=== PATIENT | male | born 1950 | race Caucasian/White ===

== ENCOUNTER 2021-05-09 19:11 | Inpatient (IN) | payer MEDICARE ==
--- NOTE | 2021-05-09 20:27 | XR ---
EXAMINATION TYPE: XR chest 2V DATE OF EXAM: 05/09/2021 COMPARISON: 08/09/2017 HISTORY: Short of breath TECHNIQUE: 2 views FINDINGS: There is some pulmonary mild vascular congestion. Heart is enlarged. There are sternal wire s. There is left axillary pacemaker. There is no pleural effusion. IMPRESSION: There is probably some mild congestive heart failure. Pulmonary congestion increased comp ared to old exam.
--- NOTE | 2021-05-09 20:45 | ED ---
General Adult HPI - General Chief complaint: Shortness of Breath Stated complaint: SOB, chest pain Time Seen by Provider: 05/09/21 20:20 Source: patient, family, RN notes reviewed Mode of arrival: ambulatory Limitations: no limitations - History of Present Illness Initial comments: Patient is a pleasant 70-year-old male presenting to the emergency department with exertional dyspnea. Symptoms have progressed over the past week. Patient is only able to take around 6 steps speak for becoming short of breath at this time. No history of similar symptoms previously. No leg pain or leg swelling. Patient does not like it down as he sleeps in a recliner. Patient denies chest discomfort however family states he has been complaining somewhat of some mild chest discomfort. No nausea vomiting. No diaphoresis. - Related Data Home Medications Medication Instructions Recorded Confirmed Aspirin EC [Ecotrin Low Dose] 81 mg PO DAILY 05/09/21 05/09/21 Atorvastatin Calcium [Lipitor] 40 mg PO DAILY 05/09/21 05/09/21 Spironolactone [Aldactone] 25 mg PO DAILY 05/09/21 05/09/21 Previous Rx's Medication Instructions Recorded Losartan [Cozaar] 12.5 mg PO DAILY #60 tab 08/10/17 carvediloL [Coreg] 6.25 mg PO BID-W/MEALS #60 tab 08/10/17 Allergies Allergy/AdvReac Type Severity Reaction Status Date / Time No Known Allergies Allergy Verified 05/09/21 21:23 Review of Systems ROS Statement: Those systems with pertinent positive or pertinent negative responses have been documented in the HPI. ROS Other: All systems not noted in ROS Statement are negative. Constitutional: Denies: fever Eyes: Denies: eye pain ENT: Denies: ear pain Respiratory: Reports: as per HPI, dyspnea Cardiovascular: Reports: as per HPI. Denies: edema Endocrine: Denies: fatigue Gastrointestinal: Denies: abdominal pain Genitourinary: Denies: dysuria Musculoskeletal: Denies: back pain Skin: Denies: rash Neurological: Denies: weakness Past Medical History Past Medical History: Coronary Artery Disease (CAD), Hyperlipidemia, Hypertension, Myocardial Infarction ([place]) Additional Past Medical History / Comment(s): Coronary artery disease, previous bypass surgery, ischemic cardiomyopathy with an ejection fraction of 20%, hypertension, hyperlipidemia, third-degree AV block status post dual-chamber AICD placement. The patient has also very poor compliance with medical treatment and the patient has not seen a doctor after his coronary artery bypass surgery. Other medical history includes hypertension and hyperlipidemia. Last Myocardial Infarction Date:: 1997 History of Any Multi-Drug Resistant Organisms: None Reported Past Surgical History: Appendectomy, Coronary Bypass/CABG, Tonsillectomy Additional Past Surgical History / Comment(s): CABG 20 years ago Past Psychological History: No Psychological Hx Reported Smoking Status: Never smoker Past Alcohol Use History: None Reported Past Drug Use History: None Reported - Past Family History Father Family Medical History: Coronary Artery Disease (CAD) Additional Family Medical History / Comment(s): PAD Mother Additional Family Medical History / Comment(s): from uterine cancer, H [place] General Exam Limitations: no limitations General appearance: alert, in no apparent distress Head exam: Present: normocephalic Eye exam: Present: normal appearance Neck exam: Present: normal inspection Respiratory exam: Present: normal lung sounds bilaterally Cardiovascular Exam: Present: regular rate, normal rhythm, systolic murmur Expanded Peripheral pulses: 2+: Radial (R), Radial (L), Posterior Tibialis (R), Posterior Tibialis (L) GI/Abdominal exam: Present: soft. Absent: tenderness Extremities exam: Present: normal inspection. Absent: pedal edema, calf tenderness Neurological exam: Present: alert Psychiatric exam: Present: normal affect, normal mood Skin exam: Present: normal color Course Vital Signs 05/09/21 19:38 Temperature 98.1 F Pulse Rate 105 H Respiratory 21 Rate Blood Pressure 143/90 O2 Sat by Pulse 97 Oximetry EKG Findings - EKG Comments: EKG Findings:: Paced rhythm with a rate of 103. WV 150. QRS 170. QT 466. QTc 410. Left axis. Wide QRS complex. Nonspecific ST-T. Medical Decision Making - Medical Decision Making Patient reevaluated and updated. Case discussed with Dr. Laird, who will admit for hospital call. - Lab Data Result diagrams: 05/09/21 20:47 05/09/21 20:47 Lab Results 05/09/21 05/09/21 05/09/21 Range/Units 20:47 20:47 20:47 WBC 8.9 (3.8-10.6) k/uL RBC 5.76 (4.30-5.90) m/uL Hgb 15.2 (13.0-17.5) gm/dL Hct 46.1 (39.0-53.0) % MCV 79.9 L (80.0-100.0) fL MCH 26.4 (25.0-35.0) pg MCHC 33.1 (31.0-37.0) g/dL RDW 16.0 H (11.5-15.5) % Plt Count 270 (150-450) k/uL MPV 8.6 Neutrophils % 78 % Lymphocytes % 12 % Monocytes % 7 % Eosinophils % 1 % Basophils % 1 % Neutrophils # 6.9 (1.3-7.7) k/uL Lymphocytes # 1.1 (1.0-4.8) k/uL Monocytes # 0.6 (0-1.0) k/uL Eosinophils # 0.1 (0-0.7) k/uL Basophils # 0.1 (0-0.2) k/uL Anisocytosis Slight PT 11.0 (9.0-12.0) sec INR 1.0 (<1.2) APTT 26.1 (22.0-30.0) sec Sodium 138 (137-145) mmol/L Potassium 4.2 (3.5-5.1) mmol/L Chloride 104 (98-107) mmol/L Carbon Dioxide 23 (22-30) mmol/L Anion Gap 11 mmol/L BUN 14 (9-20) mg/dL Creatinine 1.55 H (0.66-1.25) mg/dL Est GFR (CKD-EPI)AfAm 51 (>60 ml/min/1.73 sqM) Est GFR (CKD-EPI)NonAf 44 (>60 ml/min/1.73 sqM) Glucose 122 H (74-99) mg/dL Plasma Lactic Acid Kilo (0.7-2.0) mmol/L Calcium 9.2 (8.4-10.2) mg/dL Magnesium 2.2 (1.6-2.3) mg/dL Total Bilirubin 0.6 (0.2-1.3) mg/dL AST 27 (17-59) U/L ALT 16 (4-49) U/L Alkaline Phosphatase 103 (38-126) U/L Troponin I (0.000-0.034) ng/mL NT-Pro-B Natriuret Pep pg/mL Total Protein 7.0 (6.3-8.2) g/dL Albumin 4.1 (3.5-5.0) g/dL Coronavirus (PCR) (Not Detectd) 05/09/21 05/09/21 05/09/21 Range/Units 20:47 20:47 20:47 WBC (3.8-10.6) k/uL RBC (4.30-5.90) m/uL Hgb (13.0-17.5) gm/dL Hct (39.0-53.0) % MCV (80.0-100.0) fL MCH (25.0-35.0) pg MCHC (31.0-37.0) g/dL RDW (11.5-15.5) % Plt Count (150-450) k/uL MPV Neutrophils % % Lymphocytes % % Monocytes % % Eosinophils % % Basophils % % Neutrophils # (1.3-7.7) k/uL Lymphocytes # (1.0-4.8) k/uL Monocytes # (0-1.0) k/uL Eosinophils # (0-0.7) k/uL Basophils # (0-0.2) k/uL Anisocytosis PT (9.0-12.0) sec INR (<1.2) APTT (22.0-30.0) sec Sodium (137-145) mmol/L Potassium (3.5-5.1) mmol/L Chloride (98-107) mmol/L Carbon Dioxide (22-30) mmol/L Anion Gap mmol/L BUN (9-20) mg/dL Creatinine (0.66-1.25) mg/dL Est GFR (CKD-EPI)AfAm (>60 ml/min/1.73 sqM) Est GFR (CKD-EPI)NonAf (>60 ml/min/1.73 sqM) Glucose (74-99) mg/dL Plasma Lactic Acid Kilo 1.6 (0.7-2.0) mmol/L Calcium (8.4-10.2) mg/dL Magnesium (1.6-2.3) mg/dL Total Bilirubin (0.2-1.3) mg/dL AST (17-59) U/L ALT (4-49) U/L Alkaline Phosphatase (38-126) U/L Troponin I <0.012 (0.000-0.034) ng/mL NT-Pro-B Natriuret Pep 5840 pg/mL Total Protein (6.3-8.2) g/dL Albumin (3.5-5.0) g/dL Coronavirus (PCR) (Not Detectd) 05/09/21 Range/Units 20:47 WBC (3.8-10.6) k/uL RBC (4.30-5.90) m/uL Hgb (13.0-17.5) gm/dL Hct (39.0-53.0) % MCV (80.0-100.0) fL MCH (25.0-35.0) pg MCHC (31.0-37.0) g/dL RDW (11.5-15.5) % Plt Count (150-450) k/uL MPV Neutrophils % % Lymphocytes % % Monocytes % % Eosinophils % % Basophils % % Neutrophils # (1.3-7.7) k/uL Lymphocytes # (1.0-4.8) k/uL Monocytes # (0-1.0) k/uL Eosinophils # (0-0.7) k/uL Basophils # (0-0.2) k/uL Anisocytosis PT (9.0-12.0) sec INR (<1.2) APTT (22.0-30.0) sec Sodium (137-145) mmol/L Potassium (3.5-5.1) mmol/L Chloride (98-107) mmol/L Carbon Dioxide (22-30) mmol/L Anion Gap mmol/L BUN (9-20) mg/dL Creatinine (0.66-1.25) mg/dL Est GFR (CKD-EPI)AfAm (>60 ml/min/1.73 sqM) Est GFR (CKD-EPI)NonAf (>60 ml/min/1.73 sqM) Glucose (74-99) mg/dL Plasma Lactic Acid Kilo (0.7-2.0) mmol/L Calcium (8.4-10.2) mg/dL Magnesium (1.6-2.3) mg/dL Total Bilirubin (0.2-1.3) mg/dL AST (17-59) U/L ALT (4-49) U/L Alkaline Phosphatase (38-126) U/L Troponin I (0.000-0.034) ng/mL NT-Pro-B Natriuret Pep pg/mL Total Protein (6.3-8.2) g/dL Albumin (3.5-5.0) g/dL Coronavirus (PCR) Not Detected (Not Detectd) - Radiology Data Radiology results: image reviewed (Chest x-ray shows congestive heart failure, pulmonary congestion.) Disposition Clinical Impression: Congestive heart failure Disposition: ADMITTED IP TO THIS HOSP Is patient prescribed a controlled substance at d/c from ED?: No Decision Time: 22:11
[2021-05-09 21:14] LABS: Albumin 4.1 g/dL (3.5-5.0); Calcium 9.2 mg/dL (8.4-10.2); Magnesium 2.2 mg/dL (1.6-2.3); Potassium 4.2 mmol/L (3.5-5.1); Total Bilirubin 0.6 mg/dL (0.2-1.3)
[2021-05-09 21:19] LABS: Partial Thromboplastin Time 26.1 sec (22.0-30.0)
[2021-05-09 21:43] LABS: Anisocytosis Slight; Basophils # (A) 0.1 k/uL (0-0.2); Basophils % (A) 1 %; Eosinophils # (A) 0.1 k/uL (0-0.7); Eosinophils % (A) 1 %; HCT 46.1 % (39.0-53.0); HGB 15.2 gm/dL (13.0-17.5); Lymphocytes # (A) 1.1 k/uL (1.0-4.8); Lymphocytes % (A) 12 %; MCH 26.4 pg (25.0-35.0); MCHC 33.1 g/dL (31.0-37.0); MCV 79.9 fL (80.0-100.0); Mean Platelet Volume 8.6; Monocytes # (A) 0.6 k/uL (0-1.0); Monocytes % (A) 7 %; Neutrophils # (A) 6.9 k/uL (1.3-7.7); Neutrophils % (A) 78 %; Platelet Count 270 k/uL (150-450); RBC 5.76 m/uL (4.30-5.90); WBC 8.9 k/uL (3.8-10.6)
[2021-05-09] MEDS ORDERED: ASPIRIN 325 MG TAB PO STA (22:11)
[2021-05-09] MEDS: FUROSEMIDE 10 MG/ML 4 ML VIAL IV SCH (23:27)
--- NOTE | 2021-05-10 03:09 | P.HPIM ---
History of Present Illness H&P Date: 05/10/21 Chief Complaint: progressive exertional dyspnea 70 year old male with ICMP LVEF 20% , complete heart block s/p dual chamber pacer/defibrilator, HTN. HLD. CAD s/p CABG patient comes in due to 1 week history of progressive exertional dyspnea. he denies any leg swelling, chest pain , orthopnea (he does not sleep flat) , cough, fever, chills. he does report occasional PNDs. he denies any smoking, drug abuse, or alcohol . he had no change in his medications,. no recent hospi talization or heart attacks, he noticed progressive SOB, now he cant even walk around the house without getting winded. at times , he is getting short of breath while sitting doing nothing. for which he decided to come in for evaluation .. he denies any abd pain, nausea vomiting, changes in his bowel or urinary habits, no sick contacts or recent travel . 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 All other systems were reviewed and are negative Past Medical History Past Medical History: Coronary Artery Disease (CAD), Hyperlipidemia, Hypertension, Myocardial Infarction ([place]) Additional Past Medical History / Comment(s): Coronary artery disease, previous bypass surgery, ischemic cardiomyopathy with an ejection fraction of 20%, hypertension, hyperlipidemia, third-degree AV block status post dual-chamber AICD placement. The patient has also very poor compliance with medical treatment and the patient has not seen a doctor after his coronary artery bypass surgery. Other medical history includes hypertension and hyperlipidemia. Last Myocardial Infarction Date:: 1997 History of Any Multi-Drug Resistant Organisms: None Reported Past Surgical History: Appendectomy, Coronary Bypass/CABG, Tonsillectomy Additional Past Surgical History / Comment(s): CABG 20 years ago Past Psychological History: No Psychological Hx Reported Smoking Status: Never smoker Past Alcohol Use History: None Reported Past Drug Use History: None Reported - Past Family History Father Family Medical History: Coronary Artery Disease (CAD) Additional Family Medical History / Comment(s): PAD Mother Additional Family Medical History / Comment(s): from uterine cancer, HTN Medications and Allergies Home Medications Medication Instructions Recorded Confirmed Type Losartan [Cozaar] 12.5 mg PO DAILY #60 tab 08/10/17 05/09/21 Rx carvediloL [Coreg] 6.25 mg PO BID-W/MEALS #60 tab 08/10/17 05/09/21 Rx Aspirin EC [Ecotrin Low Dose] 81 mg PO DAILY 05/09/21 05/09/21 History Atorvastatin Calcium [Lipitor] 40 mg PO DAILY 05/09/21 05/09/21 History Spironolactone [Aldactone] 25 mg PO DAILY 05/09/21 05/09/21 History Allergies Allergy/AdvReac Type Severity Reaction Status Date / Time No Known Allergies Allergy Verified 05/09/21 21:23 Physical Exam Vitals: Vital Signs Temp Pulse Resp BP Pulse Ox 05/09/21 23:28 97.5 F L 100 20 136/96 100 05/09/21 20:43 24 05/09/21 19:38 98.1 F 105 H 21 143/90 97 Intake and Output 05/09/21 05/09/21 05/10/21 14:59 22:59 06:59 Other: Weight 90.718 kg Constitutional: No acute distress, conversant, pleasant Eyes: Anicteric sclerae, moist conjunctiva, Pupils equal round reactive to light ENMT: NC/AT Oropharynx clear, no erythema, or exudates Neck: Supple, FROM, no masses, or JVD No carotid bruits No thyromegaly Lungs: inspiratory rales at bilateral lung bases Clear to percussion Normal respiratory effort, no accessory muscle use Cardiovascular: Heart regular in rate and rhythm, systolic murmurs, no gallops, or rubs No peripheral edema Abdominal: Soft Nontender, no guarding, rebound or rigidity Abdomen moving with respiration Normoactive bowel sounds No hepatomegaly, No splenomegaly No palpable mass No abdominal wall hernia noted Skin: Normal temperature, tone, texture, turgor No induration No subcutaneous nodules No rash, lesions No ulcers Extremities: No digital cyanosis No clubbing Pedal pulses intact and symmetrical Radial pulses intact and symmetrical No calf tenderness Psychiatric: Alert and oriented to person, place and time Appropriate affect fair judgement Neuro Muscles Strength 5/5 in all 4 extremities Sensation to light touch grossly present throughout Cranial nerves II-XII grossly intact No focal sensory deficits Lymphatics: no palpable cervical or supraclavicular , or inguinal lymph nodes Results CBC & Chem 7: 05/09/21 20:47 05/09/21 20:47 Labs: Abnormal Lab Results - Last 24 Hours (Table) 05/09/21 05/09/21 Range/Units 20:47 20:47 MCV 79.9 L (80.0-100.0) fL RDW 16.0 H (11.5-15.5) % Creatinine 1.55 H (0.66-1.25) mg/dL Glucose 122 H (74-99) mg/dL Assessment and Plan Assessment: exertional dyspnea with acute on chronic CHF exacerbation ICMP with LVEF 20% s/p dual chamber pacer and defibrillator hypertension controlled hyperlipidemia CAD s/p CABG CKD III stable HLD plan 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
[2021-05-10] MEDS: carvediloL 6.25 MG TAB PO SCH ×2 (06:14→16:56)
[2021-05-10] MEDS: FUROSEMIDE 10 MG/ML 4 ML VIAL IV SCH ×3 (06:14→21:40)
[2021-05-10] MEDS: LOSARTAN 25 MG TAB PO SCH (08:40)
[2021-05-10] MEDS: HEPARIN SODIUM,PORCINE/PF 5,000 UNIT/0.5 ML SYRINGE SQ SCH ×2 (08:41→16:54)
[2021-05-10] MEDS: ASPIRIN 325 MG TAB PO SCH (08:41)
[2021-05-10] MEDS: SPIRONOLACTONE 25 MG TAB PO SCH (08:41)
[2021-05-10] MEDS: ATORVASTATIN 40 MG TAB PO SCH (08:41)
--- NOTE | 2021-05-10 11:09 | ECHOF ---
Referral Reason:exertional dyspnea , ICMP LVEF 20% MEASUREMENTS -------- HEIGHT: 172.7 cm WEIGHT: 90.7 kg BP: 136/94 RVIDd: 3.3 cm (< 3.3) IVSd: 1.4 cm (0.6 - 1.1) LVIDd: 5.6 cm (3.9 - 5.3) LVPWd: 1.3 cm (0.6 - 1.1) IVSs: 1.7 cm LVIDs: 4.2 cm LVPWs: 1.8 cm LA Diam: 4.2 cm (2.7 - 3.8) LAESV Index (A-L): 39.72 ml/m Ao Diam: 3.4 cm (2.0 - 3.7) AV Cusp: 1.9 cm (1.5 - 2.6) MV EXCURSION: 10.759 mm (> 18.000) MV EF SLOPE: 60 mm/s (70 - 150) EPSS: 1.9 cm MV E Manav: 0.99 m/s MV DecT: 139 ms MV A Manav: 0.34 m/s MV E/A Ratio: 2.90 RAP: 5.00 mmHg RVSP: 59.73 mmHg FINDINGS -------- Paced rhythm. This was a technically difficult study with suboptimal views. The left ventricular size is normal. There is moderate concentric left ventricular hypertrophy. O verall left ventricular systolic function is severely impaired with, an EF between 20 - 25 %. The right ventricle is mildly enlarged. LA is moderately dilated 34-39 ml/m2 The right atrium is normal in size. 5 ml of Lumason was utilized for enhancement of images. Interatrial and interventricular septum intact. There is mild aortic valve sclerosis. Trace amount of aortic regurgitation. Mild mitral annular calcification present. Mild tricuspid regurgitation present. There is severe pulmonary hypertension. The right ventricul ar systolic pressure, as measured by Doppler, is 59.73mmHg. Trace/mild (physiologic) pulmonic regurgitation. The aortic root size is normal. Normal inferior vena cava with normal inspiratory collapse consistent with estimated right atrial pre ssure of 5 mmHg. There is no pericardial effusion. CONCLUSIONS -------- 1. The left ventricular size is normal. 2. There is moderate concentric left ventricular hypertrophy. 3. Overall left ventricular systolic function is severely impaired with, an EF between 20 - 25 %. 4. The right ventricle is mildly enlarged. 5. LA is moderately dilated 34-39 ml/m2 6. 5 ml of Lumason was utilized for enhancement of images. 7. There is mild aortic valve sclerosis. 8. Trace amount of aortic regurgitation. 9. Mild mitral annular calcification present. 10. Mild tricuspid regurgitation present. 11. There is severe pulmonary hypertension. 12. The right ventricular systolic pressure, as measured by Doppler, is 59.73mmHg. 13. Trace/mild (physiologic) pulmonic regurgitation. 14. There is no pericardial effusion. ASSISTED LIVING ASSOCIATE: Stephany Marley RDCS
[2021-05-10] MEDS: NITROGLYCERIN OINT 1 INCH/GM PACKET TOPICAL SCH ×4 (11:11→21:41)
--- NOTE | 2021-05-10 13:18 | CONS ---
CONSULTATION CHIEF COMPLAINT: Shortness of breath. Hemal is a 70-year-old gentleman with history of history of bypass surgery, complete heart block, status post permanent pacemaker, hypertension and dyslipidemia who presented to hospital complaining of shortness of breath. He is a poor historian and it is somewhat difficult to obtain information from him. At the time of my evaluation he appears comfortable at rest and is free of symptoms. BNP is elevated at 5840. Hemoglobin is normal at 15.2. One set of troponin is negative. EKG shows paced rhythm. Echo results are pending at this time. Patient's clinical presentation is consistent with acute exacerbation of chronic congestive heart failure and we will treat the patient with IV Lasix, beta blockers, subcutaneous heparin, nitro paste, Aldactone, Cozaar. MEDICATIONS: Medications at home included aspirin, Aldactone, Cozaar, Lipitor and Coreg. ALLERGIES: NO KNOWN DRUG ALLERGIES. PAST MEDICAL AND SURGICAL HISTORY: Significant for coronary artery disease, status post CABG, complete heart block, status post permanent pacemaker, hypertension, dyslipidemia. FAMILY HISTORY: Negative for premature coronary artery disease. SOCIAL HISTORY: Negative for smoking, EtOH abuse or drug abuse. REVIEW OF SYSTEMS: HEENT is unremarkable. CARDIAC: As described above. RESPIRATORY: As described above. GI: Negative. GENITOURINARY: Negative. ALLERGY/IMMUNOLOGY: Negative. SKIN: Negative. MUSCULOSKELETAL: Significant for arthritis. PSYCHOSOCIAL: Negative. ENDOCRINE: Negative. DERMATOLOGY: Negative. CONSTITUTIONAL: Negative. ONCOLOGICAL: Negative. REGISTERED NURSE SURGICAL SERVICES: Negative. Rest of the system review is not relevant. PHYSICAL EXAMINATION: Comfortable at rest. Vital signs are stable. There is no jugular venous distention. Carotid upstroke is normal. There is no bruit. Chest exam reveals good air entry bilaterally. Heart exam reveals first and second heart sounds and ejection systolic murmur in the aortic area. Abdomen is soft. Examination of extremities did not reveal any edema. Peripheral pulses are felt. LABS: Labs have been reviewed. Creatinine is elevated at 1.5. BNP is elevated. ASSESSMENT: 1. Shortness of breath secondary to acute-onset congestive heart failure. 2. Coronary artery disease, status post coronary artery bypass grafting. 3. Complete heart block, status post permanent pacemaker. PLAN: I am going to obtain a 2D echo to document his LV function, treat him with nitro paste, beta blockers, SHAWN inhibitors and intravenous diuretics and adjust therapies as needed. MMODL / IJN: [id number] /
[2021-05-10 14:18] VITALS: BMI 30.4
--- NOTE | 2021-05-10 15:31 | P.PN ---
Subjective Progress Note Date: 05/10/21 Patient is a 70-year-old male with a PMH of dementia, systolic CHF EF 20% with coronary artery disease status post dual-chamber pacemaker/defibrillator and status post CABG, hypertension, and hyperlipidemia who presented to the emergency room with gradually worsening exertional dyspnea. The patient was a dmitted for systolic CHF exacerbation. He was seen with his grandchildren at the bedside. Patient reported ongoing dyspnea with intermittent mild epigastric discomfort, 2 out of 10 at maximal intensity, happening over the past few days. No fever, chills, nausea, vomiting, abdominal pain, diarrhea. General: Non-toxic, in no acute distress, appears stated age, normal weight HEENT: NC/AT, anicteric sclerae, moist conjunctiva, no lid-lag, PERRLA Cardiovascular: S1/S2 wnl, no murmurs, rubs, or gallops Lungs: Clear to auscultation, normal respiratory effort, no accessory muscle use Abdominal: Soft, non-tender, non-distended, no guarding, rebound, or rigidity Skin: Warm, dry Extremities: No edema or contractures Psychiatric: Alert , oriented only to person (baseline as per grandchildren at the bedside) Neuro: CN II-XII grossly intact, Strength 5/5 in all 4 extremities, Speech intact, Sensation to light touch grossly intact throughout Assessment/plan Acute systolic CHF exacerbation -Cardiology consulted -Cardiac monitoring -Monitor I's and O's -IV Lasix -Daily weights -Intake and output -Troponin 0.013 Chronic conditions: Hypertension, hyperlipidemia, chronic kidney disease -Continue with home meds DVT prophylaxis -Heparin subq Discussed with: Patient, grandchildren Anticipated discharge date: in am Anticipated discharge place: Home Objective - Vital Signs Vital signs: Vital Signs Temp 97.7 F 05/10/21 14:17 Pulse 93 05/10/21 14:17 Resp 16 05/10/21 14:17 BP 136/88 05/10/21 14:17 Pulse Ox 96 05/10/21 14:17 Intake & Output 05/09/21 05/10/21 05/10/21 18:59 06:59 18:59 Weight 90.718 kg 90.718 kg Other: Voiding Method Toilet # Voids 1 - Labs CBC & Chem 7: 05/09/21 20:47 05/09/21 20:47 Labs: Abnormal Lab Results - Last 24 Hours (Table) 05/09/21 05/09/21 Range/Units 20:47 20:47 MCV 79.9 L (80.0-100.0) fL RDW 16.0 H (11.5-15.5) % Creatinine 1.55 H (0.66-1.25) mg/dL Glucose 122 H (74-99) mg/dL
[2021-05-11] MEDS: HEPARIN SODIUM,PORCINE/PF 5,000 UNIT/0.5 ML SYRINGE SQ SCH ×3 (01:49→16:47)
[2021-05-11] MEDS: FUROSEMIDE 10 MG/ML 4 ML VIAL IV SCH (06:25)
[2021-05-11] MEDS: SPIRONOLACTONE 25 MG TAB PO SCH (07:56)
[2021-05-11] MEDS: ASPIRIN 325 MG TAB PO SCH (07:56)
[2021-05-11] MEDS: carvediloL 6.25 MG TAB PO SCH (07:57)
[2021-05-11] MEDS: NITROGLYCERIN OINT 1 INCH/GM PACKET TOPICAL SCH (07:57)
[2021-05-11] MEDS: LOSARTAN 25 MG TAB PO SCH (07:57)
[2021-05-11] MEDS: ATORVASTATIN 40 MG TAB PO SCH (07:58)
[2021-05-11] MEDS ORDERED: carvediloL 12.5 MG TAB PO SCH (08:00)
[2021-05-11] MEDS ORDERED: carvediloL 6.25 MG TAB PO ONE (08:15)
[2021-05-11] MEDS: ASPIRIN 81 MG PO SCH (09:25)
[2021-05-11 10:03] LABS: African American GFR (CKD) 46 (>60 ml/min/1.73 sqM); Anion Gap 10 mmol/L; Blood Urea Nitrogen 24 mg/dL (9-20); Calcium 8.8 mg/dL (8.4-10.2); Carbon Dioxide 29 mmol/L (22-30); Chloride 96 mmol/L (98-107); Glucose 134 mg/dL (74-99); Non-African American GFR(CKD) 40 (>60 ml/min/1.73 sqM); Potassium 3.4 mmol/L (3.5-5.1); Sodium 135 mmol/L (137-145)
[2021-05-11] MEDS ORDERED: POTASSIUM CHLORIDE ER 20 MEQ TAB.ER PO STA (10:52)
--- NOTE | 2021-05-11 10:53 | P.PN ---
Subjective Progress Note Date: 05/11/21 HISTORY OF PRESENT ILLNESS: This is a 70-year-old male with a history of coronary artery disease with previous CABG, permanent pacemaker and AICD implantation, hypertension, and hyperlipidemia who presented to the hospital with shortness of breath. The patient was diagnosed with congestive heart failure and was started on IV Lasix. The patient was examined this morning at the bedside. Patient currently denies chest pain or pressure. He denies shortness of breath. He remains on IV Lasix 40 mg every 8 hours. The patient has been having some runs of nonsustained ventricular tachycardia this morning. He denies any symptoms of palpitations or dizziness. Echocardiogram completed reveals ejection fraction 20-25%, trace amount of aortic regurgitation, mild tricuspid regurgitation, and severe pulmonary hypertension. PHYSICAL EXAM: VITAL SIGNS: Reviewed. GENERAL: Well-developed in no acute distress. NECK: Supple. No JVD or thyromegaly LUNGS: Respirations even and unlabored. Lungs diminished to auscultation bilaterally. HEART: Regular rate and rhythm. S1 and S2 heard. Systolic murmur noted. EXTREMITIES: Normal range of motion. No clubbing or cyanosis. Peripheral pulses intact. No lower extremity edema ASSESSMENT: Acute on chronic systolic congestive heart failure Coronary artery disease with previous CABG Ischemic cardiomyopathy with history of AICD implantation History of complete heart block, status post permanent pacemaker Hypertension Hyperlipidemia Nonsustained ventricular tachycardia PLAN: Continue current cardiac medications Decrease IV Lasix to 40 mg IV daily Increase carvedilol to 12.5 mg twice a day Discontinue nitro paste Check electrolytes Further recommendations pending patient's course Nurse practitioner note has been reviewed by physician. Signing provider agrees with the documented findings, assessment, and plan of care. Objective - Vital Signs Vital signs: Vital Signs Temp 97.3 F L 05/11/21 08:01 Pulse 72 05/11/21 08:01 Resp 16 05/11/21 08:01 BP 106/70 05/11/21 08:01 Pulse Ox 97 05/11/21 08:01 Intake & Output 05/10/21 05/11/21 05/11/21 18:59 06:59 18:59 Intake Total 300 Balance 300 Weight 90.718 kg 79.3 kg Intake: Oral 300 Other: Voiding Method Toilet Toilet # Voids 1 2 - Labs CBC & Chem 7: 05/09/21 20:47 05/11/21 09:36 Labs: Abnormal Lab Results - Last 24 Hours (Table) 05/11/21 Range/Units 09:36 Sodium 135 L (137-145) mmol/L Potassium 3.4 L (3.5-5.1) mmol/L Chloride 96 L (98-107) mmol/L BUN 24 H (9-20) mg/dL Creatinine 1.68 H (0.66-1.25) mg/dL Glucose 134 H (74-99) mg/dL
--- NOTE | 2021-05-11 16:18 | P.PN ---
Subjective Progress Note Date: 05/11/21 Patient is a 70-year-old male with a PMH of dementia, systolic CHF EF 20% with coronary artery disease status post dual-chamber pacemaker/defibrillator and status post CABG, hypertension, and hyperlipidemia who presented to the emergency room with gradually worsening exertional dyspnea. The patient was a dmitted for systolic CHF exacerbation. The patient was seen on 05/11 with his granddaughter at the bedside. He reported significant improvement in his shortness breath. Also reported no further chest discomfort. He denied any additional complaints. Denied fever, chills, nausea, vomiting, abdominal pain. General: Non-toxic, in no acute distress, appears stated age, normal weight HEENT: NC/AT, anicteric sclerae, moist conjunctiva, no lid-lag, PERRLA Cardiovascular: S1/S2 wnl, no murmurs, rubs, or gallops Lungs: Clear to auscultation, normal respiratory effort, no accessory muscle use Abdominal: Soft, non-tender, non-distended, no guarding, rebound, or rigidity Skin: Warm, dry Extremities: No edema or contractures Psychiatric: Alert , oriented only to person (baseline as per granddaughter at the bedside) Neuro: CN II-XII grossly intact, Strength 5/5 in all 4 extremities, Speech intact, Sensation to light touch grossly intact throughout Assessment/plan Acute systolic CHF exacerbation -Cardiology recommendations appreciated -Cardiac monitoring -Monitor I's and O's -IV Lasix decreased to daily -Daily weights -Intake and output -Troponin 0.013 Chronic conditions: Hypertension, hyperlipidemia, chronic kidney disease -Continue with home meds DVT prophylaxis -Heparin subq Discussed with: Patient, grandchildren Anticipated discharge date: in am Anticipated discharge place: Home Objective - Vital Signs Vital signs: Vital Signs Temp 97.5 F L 05/11/21 13:46 Pulse 60 05/11/21 14:29 Resp 16 05/11/21 14:29 BP 104/68 05/11/21 13:46 Pulse Ox 95 05/11/21 13:46 Intake & Output 05/10/21 05/11/21 05/11/21 18:59 06:59 18:59 Intake Total 300 Balance 300 Weight 90.718 kg 79.3 kg Intake: Oral 300 Other: Voiding Method Toilet Toilet Toilet # Voids 1 2 - Labs CBC & Chem 7: 05/09/21 20:47 05/11/21 09:36 Labs: Abnormal Lab Results - Last 24 Hours (Table) 05/11/21 Range/Units 09:36 Sodium 135 L (137-145) mmol/L Potassium 3.4 L (3.5-5.1) mmol/L Chloride 96 L (98-107) mmol/L BUN 24 H (9-20) mg/dL Creatinine 1.68 H (0.66-1.25) mg/dL Glucose 134 H (74-99) mg/dL
[2021-05-11] MEDS: carvediloL 12.5 MG TAB PO SCH (16:40)
[2021-05-12] MEDS ORDERED: QUEtiapine 25 MG TAB PO SCH (01:30)
[2021-05-12] MEDS: HEPARIN SODIUM,PORCINE/PF 5,000 UNIT/0.5 ML SYRINGE SQ SCH ×2 (02:28→08:04)
[2021-05-12 02:31] VITALS: TEMP 97.6
[2021-05-12 07:54] VITALS: BP 108/69; PULSE 78; RESP 17
[2021-05-12] MEDS: carvediloL 12.5 MG TAB PO SCH (08:15)
[2021-05-12] MEDS: ATORVASTATIN 40 MG TAB PO SCH (08:15)
[2021-05-12] MEDS: ASPIRIN 81 MG PO SCH (08:15)
[2021-05-12] MEDS: LOSARTAN 25 MG TAB PO SCH (08:16)
[2021-05-12] MEDS: SPIRONOLACTONE 25 MG TAB PO SCH (08:16)
[2021-05-12] MEDS ORDERED: FUROSEMIDE 10 MG/ML 4 ML VIAL IV SCH (09:00)
[2021-05-12] MEDS ORDERED: FUROSEMIDE 40 MG TAB PO SCH (09:00)
--- NOTE | 2021-05-12 11:01 | P.PN ---
Subjective Progress Note Date: 05/12/21 HISTORY OF PRESENT ILLNESS: This is a 70-year-old male with a history of coronary artery disease with previous CABG, permanent pacemaker and AICD implantation, hypertension, and hyperlipidemia who presented to the hospital with shortness of breath. The patient was diagnosed with congestive heart failure and was started on IV Lasix. The patient was examined this morning at the bedside. Patient currently denies chest pain or pressure. He denies shortness of breath. He remains on IV Lasix 40 mg every 8 hours. The patient has been having some runs of nonsustained ventricular tachycardia this morning. He denies any symptoms of palpitations or dizziness. Echocardiogram completed reveals ejection fraction 20-25%, trace amount of aortic regurgitation, mild tricuspid regurgitation, and severe pulmonary hypertension. 05/12/2021 Patient examined us morning. Patient is sitting up in the chair eating breakfast. He denies chest pain or pressure. He denies shortness of breath. Vital signs are stable. Patient is hoping to be discharged home today. PHYSICAL EXAM: VITAL SIGNS: Reviewed. GENERAL: Well-developed in no acute distress. NECK: Supple. No JVD or thyromegaly LUNGS: Respirations even and unlabored. Lungs diminished to auscultation bila terally. HEART: Regular rate and rhythm. S1 and S2 heard. Systolic murmur noted. EXTREMITIES: Normal range of motion. No clubbing or cyanosis. Peripheral pulses intact. No lower extremity edema ASSESSMENT: Acute on chronic systolic congestive heart failure Coronary artery disease with previous CABG Ischemic cardiomyopathy with history of AICD implantation History of complete heart block, status post permanent pacemaker Hypertension Hyperlipidemia Nonsustained ventricular tachycardia PLAN: Continue current cardiac medications Patient is stable for discharge home today from a cardiac standpoint He is to follow-up on an outpatient basis Nurse practitioner note has been reviewed by physician. Signing provider agrees with the documented findings, assessment, and plan of care. Objective - Vital Signs Vital signs: Vital Signs Temp 97.6 F 05/12/21 07:27 Pulse 78 05/12/21 07:27 Resp 17 05/12/21 07:27 BP 108/69 05/12/21 07:27 Pulse Ox 98 05/12/21 07:27 Intake & Output 05/11/21 05/12/21 05/12/21 18:59 06:59 18:59 Intake Total 300 Output Total 600 Balance -600 300 Weight 80.7 kg Intake: Oral 300 Output: Urine 600 Other: Voiding Method Toilet Toilet # Voids 4 2 - Labs CBC & Chem 7: 05/09/21 20:47 05/11/21 09:36
--- NOTE | 2021-05-12 21:23 | P.DS ---
Providers Date of admission: 05/10/21 10:06 Expected date of discharge: 05/12/21 Attending physician: Elie Zhang MD Consults: 05/09/21 22:11 Consult Physician Routine Consulting Provider: Coleman Key Consult Reason/Comments: chf Do you want consulting provider notified?: Yes, Notify in am Primary care physician: Stated None Hospital Course: Discharge Diagnosis: Acute exacerbation of systolic congestive heart failure with ejection fraction 20-25% Hypertension Dyslipidemia Chronic kidney disease stage III Coronary artery disease, ischemic cardiomyopathy History of nonsustained V. tach History of complete heart brought status post permanent pacemaker implantation Hospital Course: Patient is a 70-year-old male with systolic congestive heart failure, coronary artery disease, permanent pacemaker/AICD, hypertension, and dyslipidemia who came in with shortness of breath. He underwent an extensive evaluation was diagnosed acute exacerbation of congestive heart failure and started on Lasix. He underwent an echocardiogram which showed an ejection fraction of 20-25%, improved from his prior of less than 20%. His fluid status was optimized and he was determined stable for discharge home. His breathing had improved and was returned back to baseline. Follow-up: Patient was discharged home on Lasix 40 mg which is new for him, and his Coreg was increased from 6.25-12.5 twice a day. He was discharged home with home health. He will follow up with cardiology and Dr. Dalal. Patient seen and examined at bedside. Denies any chest pain, shortness breath, nausea, or vomiting. Appears somewhat confused however nursing states family says this is normal for him. He reports that he lives with his granddaughter who upset with medications. Vital signs reviewed and stable. General: non toxic, no distress, appears at stated age Derm: warm, dry Head: atraumatic, normocephalic, symmetric Eyes: EOMI, no lid lag, anicteric sclera Mouth: no lip lesion, mucus membranes moist Cardiovascular: S1S2 reg, no murmur, positive posterior tibial pulse bilateral, Lungs: CTA bilateral, no rhonchi, no rales , no accessory muscle use Abdominal: soft, nontender to palpation, no guarding, no appreciable organomegaly Ext: no gross muscle atrophy, no edema, no contractures Neuro: CN II-XI grossly intact, no focal neuro deficits Psych: Alert, oriented to self and year, not situation. A total of 35 minutes of time were spent preparing this complex discharge summary . Plan - Discharge Summary New Discharge Prescriptions: New carvediloL [Coreg*] 12.5 mg PO BID-W/MEALS #60 tab Furosemide [Lasix] 40 mg PO DAILY #30 tab Continue Losartan [Cozaar] 12.5 mg PO DAILY #60 tab Aspirin EC [Ecotrin Low Dose] 81 mg PO DAILY Spironolactone [Aldactone] 25 mg PO DAILY Atorvastatin Calcium [Lipitor] 40 mg PO DAILY Discontinued carvediloL [Coreg] 6.25 mg PO BID-W/MEALS #60 tab Discharge Medication List Losartan [Cozaar] 12.5 mg PO DAILY #60 tab 08/10/17 [Rx] Aspirin EC [Ecotrin Low Dose] 81 mg PO DAILY 05/09/21 [History] Atorvastatin Calcium [Lipitor] 40 mg PO DAILY 05/09/21 [History] Spironolactone [Aldactone] 25 mg PO DAILY 05/09/21 [History] Furosemide [Lasix] 40 mg PO DAILY #30 tab 05/12/21 [Rx] carvediloL [Coreg*] 12.5 mg PO BID-W/MEALS #60 tab 05/12/21 [Rx] Follow up Appointment(s)/Referral(s): Trung Meza MD [STAFF PHYSICIAN] - 1 Week (Office will call with appointment time and date.) Martin Dalal [STAFF PHYSICIAN] - 1 Week Patient Instructions/Handouts: Heart Failure (DC), Low-Sodium Diet (DC) Activity/Diet/Wound Care/Special Instructions: Activity: as tolerated Diet: heart healthy, low sodium Special Instructions: daily weights, make a log Discharge Disposition: HOME WITH HOME HEALTH SERVICES
== END 2021-05-12 12:38 | disposition home health service (06) | DRG 291 ==
LOC: EC 19:11 → 6NMEDSUR 22:11 → OBSVTOIN 05-10 10:06 → 6NMEDSUR 05-10 10:37
PROVIDERS: ADMIT Internal Medicine; ATTEND Internal Medicine
DX: I13.0 Hypertensive heart and chronic kidney disease with heart failure and stage 1 through stage 4 chronic kidney disease, or unspecified chronic kidney disease (principal); I50.23 Acute on chronic systolic (congestive) heart failure; I47.2 Ventricular tachycardia; Z20.822 Contact with and (suspected) exposure to COVID-19; R01.1 Cardiac murmur, unspecified; R06.00 Dyspnea, unspecified; I25.10 Atherosclerotic heart disease of native coronary artery without angina pectoris; I25.5 Ischemic cardiomyopathy; E78.5 Hyperlipidemia, unspecified; N18.30 Chronic kidney disease, stage 3 unspecified; F03.90 Unspecified dementia, unspecified severity, without behavioral disturbance, psychotic disturbance, mood disturbance, and anxiety; I25.2 Old myocardial infarction; Z79.82 Long term (current) use of aspirin; Z79.899 Other long term (current) drug therapy; Z91.19 Patient's noncompliance with other medical treatment and regimen; Z95.1 Presence of aortocoronary bypass graft; Z95.810 Presence of automatic (implantable) cardiac defibrillator; Z86.79 Personal history of other diseases of the circulatory system
CPT/HCPCS: 36415; 71046; 80048; 80053; 83605; 83735; 83880; 84484; 85025; 85610; 85730; 87635; 93005; 93306; 99285

== ENCOUNTER 2021-08-08 09:07 | Emergency (ER) | payer MEDICARE ==
[2021-08-08 09:13] VITALS: RESP 18
[2021-08-08] MEDS ORDERED: SODIUM CHLORIDE 0.9% 500 ML 500 ML IV ONE (09:34)
[2021-08-08] MEDS ORDERED: SODIUM CHLORIDE 0.9% 1,000 ML IV ONE (09:34)
--- NOTE | 2021-08-08 09:39 | ED ---
General Adult HPI - General Chief complaint: Shortness of Breath Stated complaint: SOB, confusion Time Seen by Provider: 08/08/21 09:10 Source: patient, family, RN notes reviewed, old records reviewed Mode of arrival: wheelchair Limitations: no limitations - History of Present Illness Initial comments: This is a 71-year-old male with a past medical history significant for dementia and pacemaker. Patient also is a history of high blood pressure. Daughter states he had recently been diagnosed with congestive heart wall. Patient is brought in today because daughter states over the last few days becoming more more confused the other night he get up and urinated into one of the heating vents inside of the toilet. According to the daughter he also started having diarrhea on Sunday. Patient had a fall asleep but there was no injury at the daughter noted. They don't know why he fell the patient did not remember why he fell. Patient currently has no complaints he denies any pain. Daughter states that it look like he was having some difficulty breathing earlier but currently he does not appear to be having any problem breathing. Patient did not get the COVID vaccine. Daughter states she was complaining of being chilled earlier but she did not take his temperature. Daughter has not noted any vomiting or fever or cough. Patient denies chest pain or abdominal pain. - Related Data Home Medications Medication Instructions Recorded Confirmed Aspirin EC [Ecotrin Low Dose] 81 mg PO DAILY 05/09/21 08/08/21 Atorvastatin Calcium [Lipitor] 40 mg PO DAILY 05/09/21 08/08/21 Spironolactone [Aldactone] 25 mg PO DAILY 05/09/21 08/08/21 carvediloL [Coreg*] 12.5 mg PO AC-BID 08/08/21 08/08/21 Previous Rx's Medication Instructions Recorded Losartan [Cozaar] 12.5 mg PO DAILY #60 tab 08/10/17 Furosemide [Lasix] 40 mg PO DAILY #30 tab 05/12/21 Allergies Allergy/AdvReac Type Severity Reaction Status Date / Time No Known Allergies Allergy Verified 08/08/21 10:16 Review of Systems ROS Statement: Those systems with pertinent positive or pertinent negative responses have been documented in the HPI. ROS Other: All systems not noted in ROS Statement are negative. Past Medical History Past Medical History: Coronary Artery Disease (CAD), Hyperlipidemia, Hypertension, Myocardial Infarction (LA) Additional Past Medical History / Comment(s): Coronary artery disease, previous bypass surgery, ischemic cardiomyopathy with an ejection fraction of 20%, hypertension, hyperlipidemia, third-degree AV block status post dual-chamber AICD placement. The patient has also very poor compliance with medical treatment and the patient has not seen a doctor after his coronary artery bypass surgery. Other medical history includes hypertension and hyperlipidemia. Last Myocardial Infarction Date:: 1997 History of Any Multi-Drug Resistant Organisms: None Reported Past Surgical History: Appendectomy, Coronary Bypass/CABG, Tonsillectomy Additional Past Surgical History / Comment(s): CABG 20 years ago Past Psychological History: No Psychological Hx Reported Smoking Status: Never smoker Past Alcohol Use History: None Reported Past Drug Use History: None Reported - Past Family History Father Family Medical History: Coronary Artery Disease (CAD) Additional Family Medical History / Comment(s): PAD Mother Additional Family Medical History / Comment(s): from uterine cancer, HTN General Exam - General Exam Comments Initial Comments: GENERAL: Patient is well-developed and well-nourished. Patient is nontoxic and well- hydrated and is in no acute distress. ENT: Neck is soft and supple. No significant lymphadenopathy is noted. Oropharynx is clear. Moist mucous membranes. Neck has full range of motion without eliciting any pain. EYES: The sclera were anicteric and conjunctiva were pink and moist. Extraocular movements were intact and pupils were equal round and reactive to light. Eyelids were unremarkable. PULMONARY: Unlabored respirations. Good breath sounds bilaterally. No audible rales rhonc hi or wheezing was noted. CARDIOVASCULAR: There is a regular rate and rhythm without any murmurs gallops or rubs. ABDOMEN: Soft and nontender with normal bowel sounds. SKIN: Skin is clear with no lesions or rashes and otherwise unremarkable. NEUROLOGIC: Patient is alert and oriented 2. Cranial nerves II through XII are grossly intact. Motor and sensory are also intact. Normal speech, volume and content. Symmetrical smile. MUSCULOSKELETAL: Normal extremities with adequate strength and full range of motion. No lower extremity swelling or edema. No calf tenderness. LYMPHATICS: No significant lymphadenopathy is noted PSYCHIATRIC: Normal psychiatric evaluation. Limitations: no limitations Course Vital Signs 08/08/21 08/08/21 09:09 10:25 Temperature 98.8 F Pulse Rate 79 68 Respiratory 18 18 Rate Blood Pressure 116/71 115/73 O2 Sat by Pulse 91 L 96 Oximetry Medical Decision Making - Medical Decision Making EKG shows a paced rhythm at 66 bpm RI interval 108 QRSs 170 QT interval is 518 QTC is 543. Patient's x-ray shows no acute abnormality. Patient's COVID positive and received monoclonal antibodies. - Lab Data Result diagrams: 08/08/21 09:36 08/08/21 09:36 Lab Results 08/08/21 08/08/21 08/08/21 Range/Units 09:36 09:36 09:36 WBC 3.0 L (3.8-10.6) k/uL RBC 5.22 (4.30-5.90) m/uL Hgb 14.6 (13.0-17.5) gm/dL Hct 43.1 (39.0-53.0) % MCV 82.6 (80.0-100.0) fL MCH 28.0 (25.0-35.0) pg MCHC 33.8 (31.0-37.0) g/dL RDW 15.7 H (11.5-15.5) % Plt Count 71 L (150-450) k/uL MPV 11.3 Neutrophils % 70 % Lymphocytes % 14 % Monocytes % 13 % Eosinophils % 1 % Basophils % 1 % Neutrophils # 2.1 (1.3-7.7) k/uL Lymphocytes # 0.4 L (1.0-4.8) k/uL Monocytes # 0.4 (0-1.0) k/uL Eosinophils # 0.0 (0-0.7) k/uL Basophils # 0.0 (0-0.2) k/uL Manual Slide Review Performed RBC Morphology Normal PT 10.5 (9.0-12.0) sec INR 1.0 (<1.2) APTT 23.6 (22.0-30.0) sec Sodium 133 L (137-145) mmol/L Potassium 5.8 H (3.5-5.1) mmol/L Chloride 100 (98-107) mmol/L Carbon Dioxide 18 L (22-30) mmol/L Anion Gap 15 mmol/L BUN 25 H (9-20) mg/dL Creatinine 1.25 (0.66-1.25) mg/dL Est GFR (CKD-EPI)AfAm 66 (>60 ml/min/1.73 sqM) Est GFR (CKD-EPI)NonAf 57 (>60 ml/min/1.73 sqM) Glucose 90 (74-99) mg/dL Calcium 8.6 (8.4-10.2) mg/dL Total Bilirubin 1.2 (0.2-1.3) mg/dL AST 49 (17-59) U/L ALT 17 (4-49) U/L Alkaline Phosphatase 45 (38-126) U/L Troponin I (0.000-0.034) ng/mL Total Protein 7.6 (6.3-8.2) g/dL Albumin 4.3 (3.5-5.0) g/dL Urine Color Urine Appearance (Clear) Urine pH (5.0-8.0) Ur Specific [place] (1.001-1.035) Urine Protein (Negative) Urine Glucose (UA) (Negative) Urine Ketones (Negative) Urine Blood (Negative) Urine Nitrite (Negative) Urine Bilirubin (Negative) Urine Urobilinogen (<2.0) mg/dL Ur Leukocyte Esterase (Negative) Urine Opiates Screen (NotDetected) Ur Oxycodone Screen (NotDetected) Urine Methadone Screen (NotDetected) Ur Propoxyphene Screen (NotDetected) Ur Barbiturates Screen (NotDetected) U Tricyclic Antidepress (NotDetected) Ur Phencyclidine Scrn (NotDetected) Ur Amphetamines Screen (NotDetected) U Methamphetamines Scrn (NotDetected) U Benzodiazepines Scrn (NotDetected) Urine Cocaine Screen (NotDetected) U Marijuana (THC) Screen (NotDetected) Coronavirus (PCR) (Not Detectd) 08/08/21 08/08/21 08/08/21 Range/Units 09:36 09:36 09:47 WBC (3.8-10.6) k/uL RBC (4.30-5.90) m/uL Hgb (13.0-17.5) gm/dL Hct (39.0-53.0) % MCV (80.0-100.0) fL MCH (25.0-35.0) pg MCHC (31.0-37.0) g/dL RDW (11.5-15.5) % Plt Count (150-450) k/uL MPV Neutrophils % % Lymphocytes % % Monocytes % % Eosinophils % % Basophils % % Neutrophils # (1.3-7.7) k/uL Lymphocytes # (1.0-4.8) k/uL Monocytes # (0-1.0) k/uL Eosinophils # (0-0.7) k/uL Basophils # (0-0.2) k/uL Manual Slide Review RBC Morphology PT (9.0-12.0) sec INR (<1.2) APTT (22.0-30.0) sec Sodium (137-145) mmol/L Potassium (3.5-5.1) mmol/L Chloride (98-107) mmol/L Carbon Dioxide (22-30) mmol/L Anion Gap mmol/L BUN (9-20) mg/dL Creatinine (0.66-1.25) mg/dL Est GFR (CKD-EPI)AfAm (>60 ml/min/1.73 sqM) Est GFR (CKD-EPI)NonAf (>60 ml/min/1.73 sqM) Glucose (74-99) mg/dL Calcium (8.4-10.2) mg/dL Total Bilirubin (0.2-1.3) mg/dL AST (17-59) U/L ALT (4-49) U/L Alkaline Phosphatase (38-126) U/L Troponin I 0.035 H* (0.000-0.034) ng/mL Total Protein (6.3-8.2) g/dL Albumin (3.5-5.0) g/dL Urine Color Urine Appearance (Clear) Urine pH (5.0-8.0) Ur Specific [place] (1.001-1.035) Urine Protein (Negative) Urine Glucose (UA) (Negative) Urine Ketones (Negative) Urine Blood (Negative) Urine Nitrite (Negative) Urine Bilirubin (Negative) Urine Urobilinogen (<2.0) mg/dL Ur Leukocyte Esterase (Negative) Urine Opiates Screen Not Detected (NotDetected) Ur Oxycodone Screen Not Detected (NotDetected) Urine Methadone Screen Not Detected (NotDetected) Ur Propoxyphene Screen Not Detected (NotDetected) Ur Barbiturates Screen Not Detected (NotDetected) U Tricyclic Antidepress Not Detected (NotDetected) Ur Phencyclidine Scrn Not Detected (NotDetected) Ur Amphetamines Screen Not Detected (NotDetected) U Methamphetamines Scrn Not Detected (NotDetected) U Benzodiazepines Scrn Not Detected (NotDetected) Urine Cocaine Screen Not Detected (NotDetected) U Marijuana (THC) Screen Not Detected (NotDetected) Coronavirus (PCR) Detected A (Not Detectd) 08/08/21 Range/Units 09:47 WBC (3.8-10.6) k/uL RBC (4.30-5.90) m/uL Hgb (13.0-17.5) gm/dL Hct (39.0-53.0) % MCV (80.0-100.0) fL MCH (25.0-35.0) pg MCHC (31.0-37.0) g/dL RDW (11.5-15.5) % Plt Count (150-450) k/uL MPV Neutrophils % % Lymphocytes % % Monocytes % % Eosinophils % % Basophils % % Neutrophils # (1.3-7.7) k/uL Lymphocytes # (1.0-4.8) k/uL Monocytes # (0-1.0) k/uL Eosinophils # (0-0.7) k/uL Basophils # (0-0.2) k/uL Manual Slide Review RBC Morphology PT (9.0-12.0) sec INR (<1.2) APTT (22.0-30.0) sec Sodium (137-145) mmol/L Potassium (3.5-5.1) mmol/L Chloride (98-107) mmol/L Carbon Dioxide (22-30) mmol/L Anion Gap mmol/L BUN (9-20) mg/dL Creatinine (0.66-1.25) mg/dL Est GFR (CKD-EPI)AfAm (>60 ml/min/1.73 sqM) Est GFR (CKD-EPI)NonAf (>60 ml/min/1.73 sqM) Glucose (74-99) mg/dL Calcium (8.4-10.2) mg/dL Total Bilirubin (0.2-1.3) mg/dL AST (17-59) U/L ALT (4-49) U/L Alkaline Phosphatase (38-126) U/L Troponin I (0.000-0.034) ng/mL Total Protein (6.3-8.2) g/dL Albumin (3.5-5.0) g/dL Urine Color Yellow Urine Appearance Clear (Clear) Urine pH 5.5 (5.0-8.0) Ur Specific [place] 1.025 (1.001-1.035) Urine Protein Trace H (Negative) Urine Glucose (UA) Negative (Negative) Urine Ketones Trace H (Negative) Urine Blood Negative (Negative) Urine Nitrite Negative (Negative) Urine Bilirubin Negative (Negative) Urine Urobilinogen <2.0 (<2.0) mg/dL Ur Leukocyte Esterase Negative (Negative) Urine Opiates Screen (NotDetected) Ur Oxycodone Screen (NotDetected) Urine Methadone Screen (NotDetected) Ur Propoxyphene Screen (NotDetected) Ur Barbiturates Screen (NotDetected) U Tricyclic Antidepress (NotDetected) Ur Phencyclidine Scrn (NotDetected) Ur Amphetamines Screen (NotDetected) U Methamphetamines Scrn (NotDetected) U Benzodiazepines Scrn (NotDetected) Urine Cocaine Screen (NotDetected) U Marijuana (THC) Screen (NotDetected) Coronavirus (PCR) (Not Detectd) Disposition Clinical Impression: COVID-19, Thrombocytopenia, Dehydration Disposition: HOME SELF-CARE Condition: Good Instructions (If sedation given, give patient instructions): Coronavirus Disease 2019 (COVID-19) Is patient prescribed a controlled substance at d/c from ED?: No Referrals: None,Stated [Primary Care Provider] - 1-2 days Time of Disposition: 12:03
[2021-08-08 09:58] LABS: Basophils % (A) 1 %; Eosinophils % (A) 1 %; HCT 43.1 % (39.0-53.0); HGB 14.6 gm/dL (13.0-17.5); Lymphocytes # (A) 0.4 k/uL (1.0-4.8); Lymphocytes % (A) 14 %; MCHC 33.8 g/dL (31.0-37.0); MCV 82.6 fL (80.0-100.0); Mean Platelet Volume 11.3; Monocytes # (A) 0.4 k/uL (0-1.0); Monocytes % (A) 13 %; Neutrophils # (A) 2.1 k/uL (1.3-7.7); Neutrophils % (A) 70 %; Partial Thromboplastin Time 23.6 sec (22.0-30.0); Prothrombin Time 10.5 sec (9.0-12.0); RBC 5.22 m/uL (4.30-5.90); RDW 15.7 % (11.5-15.5)
[2021-08-08 10:02] LABS: Albumin 4.3 g/dL (3.5-5.0); Calcium 8.6 mg/dL (8.4-10.2); Total Bilirubin 1.2 mg/dL (0.2-1.3); Total Protein 7.6 g/dL (6.3-8.2)
[2021-08-08 10:07] LABS: Potassium 5.8 mmol/L (3.5-5.1)
--- NOTE | 2021-08-08 10:08 | XR ---
EXAMINATION TYPE: XR chest 2V DATE OF EXAM: 08/08/2021 COMPARISON: 05/09/2021 TECHNIQUE: PA and lateral views submitted. HISTORY: Altered mental status FINDINGS: The lungs are clear and there is no pneumothorax, pleural effusion, or focal pneumonia. Heart is en larged. Postoperative change with cardiac device. Arthropathy of the shoulders with interstitial goran tico. IMPRESSION: 1. Stable x-ray correlate for chronic interstitial lung disease, interstitial pneumonitis or venous c ongestion.
[2021-08-08 10:10] LABS: Appearance,Urine Clear (Clear); Bilirubin,Urine Negative (Negative); Blood,Urine Negative (Negative); Color,Urine Yellow; Glucose,Urine (UA) Negative (Negative); Ketones,Urine Trace (Negative); Leukocyte Esterase,Urine Negative (Negative); Nitrite,Urine Negative (Negative); PH, Urine 5.5 (5.0-8.0); Protein,Urine Trace (Negative); Specific Gravity,Urine 1.025 (1.001-1.035); Urobilinogen,Urine <2.0 mg/dL (<2.0)
[2021-08-08 10:13] LABS: Platelet Count 71 k/uL (150-450)
--- NOTE | 2021-08-08 10:13 | CT ---
EXAMINATION TYPE: CT brain wo con DATE OF EXAM: 08/08/2021 COMPARISON: None HISTORY: 71-year-old male confusion, Altered mental status. TECHNIQUE: Examination was done in axial plane without intravenous contrast. Coronal and sagittal r econstructions performed. CT DLP: 1091.4 mGycm Automated exposure control for dose reduction was used. FINDINGS: There is no evidence of acute intracranial hemorrhage, acute ischemic changes, mass, mass-effect, or extra-axial fluid collection. There is no effacement of cerebral sulci or basal subarachnoid cister ns. There is no hydrocephalus. There is no midline shift. Bonner-white matter distinction is preserv ed. Mild age-related supratentorial volume loss. Mild patchy subcortical white matter hypodensities relat ing to changes of chronic small vessels. Some atherosclerotic calcifications are noted within the proximal V4 segments of the vertebral arteri es and also within the carotid siphons. Leftward nasal septal deviation. Paranasal sinuses and mastoid air cells well pneumatized. Orbits and globes are intact. IMPRESSION: Mild patchy burden of chronic small vessel ischemic disease. No acute intracranial abnormality seen.
[2021-08-08 10:20] LABS: Amphetamine Screen,Urine Not Detected (NotDetected); Barbiturate Screen,Urine Not Detected (NotDetected); Benzodiazepines Screen,Urine Not Detected (NotDetected); Cocaine Screen,Urine Not Detected (NotDetected); Methadone Screen, Urine Not Detected (NotDetected); Opiate Screen,Urine Not Detected (NotDetected); Oxycodone Screen, Urine Not Detected (NotDetected); Phencyclidine Screen,Urine Not Detected (NotDetected); Tricyclic Antidepressant,Urine Not Detected (NotDetected); Urn Cannabinoid Scrn Not Detected (NotDetected)
[2021-08-08] MEDS ORDERED: SODIUM CHLORIDE 0.9% 50 ML IVPB ONE (10:45)
[2021-08-08] MEDS ORDERED: SOTROVIMAB (EUA) 500 MG in SODIUM CHLORIDE 0.9% 100 ML IVPB ONE (10:45)
[2021-08-08 13:48] VITALS: BP 118/70; PULSE 74; TEMP 98.8
== END 2021-08-08 13:15 | disposition home or self-care (01) ==
LOC: EC 09:07
DX: U07.1 COVID-19 (principal); E86.0 Dehydration; D69.6 Thrombocytopenia, unspecified; I25.10 Atherosclerotic heart disease of native coronary artery without angina pectoris; E78.5 Hyperlipidemia, unspecified; I10 Essential (primary) hypertension; I25.2 Old myocardial infarction; Z79.82 Long term (current) use of aspirin; Z90.49 Acquired absence of other specified parts of digestive tract; Z95.1 Presence of aortocoronary bypass graft
CPT/HCPCS: 99285; 96360; 36415; 93005; 80053; 84484; 85025; 85610; 85730; 81003; 87040; 80306; 87635; 71046; 70450; Q0247

== ENCOUNTER 2022-07-06 19:02 | Inpatient (IN) | payer MEDICARE ==
[2022-07-06] MEDS ORDERED: SODIUM CHLORIDE 0.9% 500 ML 500 ML IV STA (19:32)
[2022-07-06] MEDS ORDERED: IPRATROPIUM-ALBUTEROL 3 ML NEB INHALATION STA (19:32)
[2022-07-06] MEDS ORDERED: SODIUM CHLORIDE 0.9% 1,000 ML IV STA (19:32)
[2022-07-06] MEDS ORDERED: KETOROLAC 15 MG/ML 1 ML VIAL IVP STA (19:34)
[2022-07-06] MEDS: ACETAMINOPHEN TAB 500 MG TAB PO STA ×2 (20:06→20:08)
[2022-07-06 20:09] LABS: Basophils # (A) 0.1 k/uL (0-0.2); Basophils % (A) 1 %; Eosinophils % (A) 0 %; HCT 53.5 % (39.0-53.0); HGB 16.6 gm/dL (13.0-17.5); Hypochromasia Slight; Lymphocytes # (A) 0.7 k/uL (1.0-4.8); Lymphocytes % (A) 8 %; MCH 26.8 pg (25.0-35.0); MCHC 31.1 g/dL (31.0-37.0); MCV 86.3 fL (80.0-100.0); Mean Platelet Volume 10.7; Monocytes # (A) 1.2 k/uL (0-1.0); Monocytes % (A) 13 %; Neutrophils # (A) 6.8 k/uL (1.3-7.7); Neutrophils % (A) 74 %; Platelet Count 169 k/uL (150-450); RDW 14.3 % (11.5-15.5); WBC 9.1 k/uL (3.8-10.6)
[2022-07-06 20:14] LABS: INR 1.3 (<1.2); Partial Thromboplastin Time 26.1 sec (22.0-30.0); Prothrombin Time 13.6 sec (9.0-12.0)
[2022-07-06 20:36] LABS: Albumin 4.8 g/dL (3.5-5.0); Calcium 8.9 mg/dL (8.4-10.2); Magnesium 1.9 mg/dL (1.6-2.3); Potassium 4.7 mmol/L (3.5-5.1); Total Bilirubin 1.9 mg/dL (0.2-1.3); Total Protein 7.9 g/dL (6.3-8.2)
--- NOTE | 2022-07-06 20:50 | XR ---
EXAMINATION TYPE: XR chest 2V DATE OF EXAM: 07/06/2022 COMPARISON: 08/08/2021 INDICATION: Shortness of breath hypertension TECHNIQUE: Frontal and lateral views of the chest are obtained. FINDINGS: The heart size is normal. The pulmonary vasculature is normal. Bibasilar infiltrates are present likely greater at the left base. Pacemaker overlies left chest.. IMPRESSION: 1. Lower lobe infiltrate likely greater at the left lung base. Correlate for pneumonia. Atelectasis c ould be considered. Follow-up is recommended.
--- NOTE | 2022-07-06 21:03 | ED ---
SOB HPI - General Chief Complaint: Shortness of Breath Stated Complaint: CHF,AMS Time Seen by Provider: 07/06/22 19:25 Source: family Mode of arrival: wheelchair Limitations: no limitations - History of Present Illness Initial Comments: This 71-year-old male presents with complaint of difficulty in breathing. This apparently started over the last couple of days. He is had some shaking chills currently but no definitive fever. He denies any known sick contacts. Most of history is obtained per daughter who was present. There is no leg pain or swe lling. The patient has felt fairly weak and fatigued. He has had some diffuse body aches. Daughter relates that his blood pressure was low at home and he was tachycardic. She states that his fingertips were blue as well. He does have a long cardiac history. No other complaints or modifying factors. - Related Data Home Medications Medication Instructions Recorded Confirmed Aspirin EC [Ecotrin Low Dose] 81 mg PO DAILY 05/09/21 07/06/22 carvediloL [Coreg*] 12.5 mg PO DIRECTED 08/08/21 07/06/22 Furosemide [Lasix] 20 mg PO DIRECTED 07/06/22 07/06/22 Allergies Allergy/AdvReac Type Severity Reaction Status Date / Time No Known Allergies Allergy Verified 07/06/22 20:39 Review of Systems ROS Statement: Those systems with pertinent positive or pertinent negative responses have been documented in the HPI. ROS Other: All systems not noted in ROS Statement are negative. 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 The patient has also very poor compliance with medical treatment and the patient has not seen a doctor after his coronary artery bypass surgery. Other medical history includes hypertension and hyperlipidemia. Last Myocardial Infarction Date:: 1997 History of Any Multi-Drug Resistant Organisms: None Reported Past Surgical History: Appendectomy, Coronary Bypass/CABG, Tonsillectomy Additional Past Surgical History / Comment(s): CABG 20 years ago Past Psychological History: No Psychological Hx Reported Smoking Status: Never smoker Past Alcohol Use History: None Reported Past Drug Use History: None Reported - Past Family History Father Family Medical History: Coronary Artery Disease (CAD) Additional Family Medical History / Comment(s): PAD Mother Additional Family Medical History / Comment(s): from uterine cancer, HTN General Exam - General Exam Comments Initial Comments: GENERAL: The patient is well nourished and well hydrated. VITAL SIGNS: Heart rate, blood pressure, respiratory rate reviewed as recorded in nurse's notes. EYES: Pupils are round and reactive. Extraocular movements are intact. No conjunctival / lid redness or swelling. ENT: No external evidence of injury, swelling, or ecchymosis. Airway is patent. Throat is clear. NECK: Nontender. No swelling or evidence of injury. No subcutaneous emphysema. Trachea is midline. No thyroid mass. HEART: Regular rate and rhythm. Good peripheral pulses. LUNGS/CHEST: Mild rhonchi noted bilaterally, no acute respiratory distress. ABDOMEN: Abdomen soft without tenderness. No palpable masses or organomegaly. No peritoneal signs. No abdominal wall swelling or ecchymosis. EXTREMITIES: No extremity tenderness. Normal muscle tone and function. No thoracolumbar tenderness. NEUROLOGIC: Sensation is grossly intact. Cranial nerve exam reveals face is symmetrical, tongue is midline, speech is clear. SKIN: No abrasions or ecchymosis is noted. No induration or masses noted. PSYCHIATRIC: Alert and pleasant. Appropriate behavior. Limitations: no limitations Course Vital Signs 07/06/22 07/06/22 19:18 20:40 Temperature 98 F Pulse Rate 95 104 H Respiratory 20 Rate O2 Sat by Pulse 88 L Oximetry Medical Decision Making - Medical Decision Making The patient was seen and examined. All diagnostics were reviewed. He is placed on the phototypesetting equipment monitor and this shows sinus tachycardia. The EKG was done and shows an electronic ventricular paced rhythm at 117. There is associated paced rhythm ST and T-wave changes. The SC interval is 243, QRS duration is 206, and the QTc interval is 485. The patient had a chest x-ray which does show evidence of likely infiltrates as interpreted by myself with similar findings per ra diologist. Findings also may be atelectasis. The patient is feeling much improved on recheck. He did receive Toradol, Tylenol, oxygen, and DuoNeb breathing treatment as well as Tamiflu. His oxygen is 93% on 2 L on recheck. Laboratory does show a degree of lactic acidosis. Patient was mildly hydrated but not severely dehydrated as he does have a significant history of cardiac disease and congestive heart failure recently. The creatinine is slightly elevated as compared to previous consistent with acute kidney injury. The patient and daughter are agreeable with admission. Case is discussed with Corie from internal medicine was also agreeable. - Lab Data Result diagrams: 07/06/22 19:59 07/06/22 19:59 Lab Results 07/06/22 07/06/22 07/06/22 Range/Units 19:59 19:59 19:59 WBC 9.1 (3.8-10.6) k/uL RBC 6.20 H (4.30-5.90) m/uL Hgb 16.6 (13.0-17.5) gm/dL Hct 53.5 H (39.0-53.0) % MCV 86.3 (80.0-100.0) fL MCH 26.8 (25.0-35.0) pg MCHC 31.1 (31.0-37.0) g/dL RDW 14.3 (11.5-15.5) % Plt Count 169 (150-450) k/uL MPV 10.7 Neutrophils % 74 % Lymphocytes % 8 % Monocytes % 13 % Eosinophils % 0 % Basophils % 1 % Neutrophils # 6.8 (1.3-7.7) k/uL Lymphocytes # 0.7 L (1.0-4.8) k/uL Monocytes # 1.2 H (0-1.0) k/uL Eosinophils # 0.0 (0-0.7) k/uL Basophils # 0.1 (0-0.2) k/uL Hypochromasia Slight PT 13.6 H (9.0-12.0) sec INR 1.3 H (<1.2) APTT 26.1 (22.0-30.0) sec Sodium 137 (137-145) mmol/L Potassium 4.7 (3.5-5.1) mmol/L Chloride 103 (98-107) mmol/L Carbon Dioxide 18 L (22-30) mmol/L Anion Gap 16 mmol/L BUN 20 (9-20) mg/dL Creatinine 1.95 H (0.66-1.25) mg/dL Est GFR (CKD-EPI)AfAm 38 (>60 ml/min/1.73 sqM) Est GFR (CKD-EPI)NonAf 33 (>60 ml/min/1.73 sqM) Glucose 131 H (74-99) mg/dL Plasma Lactic Acid Kilo (0.7-2.0) mmol/L Calcium 8.9 (8.4-10.2) mg/dL Magnesium 1.9 (1.6-2.3) mg/dL Total Bilirubin 1.9 H (0.2-1.3) mg/dL AST 77 H (17-59) U/L ALT 38 (4-49) U/L Alkaline Phosphatase 121 (38-126) U/L Troponin I (0.000-0.034) ng/mL NT-Pro-B Natriuret Pep pg/mL Total Protein 7.9 (6.3-8.2) g/dL Albumin 4.8 (3.5-5.0) g/dL Influenza Type A (PCR) (Not Detectd) Influenza Type B (PCR) (Not Detectd) RSV (PCR) (Not Detectd) SARS-CoV-2 (PCR) (Not Detectd) 07/06/22 07/06/22 07/06/22 Range/Units 19:59 19:59 19:59 WBC (3.8-10.6) k/uL RBC (4.30-5.90) m/uL Hgb (13.0-17.5) gm/dL Hct (39.0-53.0) % MCV (80.0-100.0) fL MCH (25.0-35.0) pg MCHC (31.0-37.0) g/dL RDW (11.5-15.5) % Plt Count (150-450) k/uL MPV Neutrophils % % Lymphocytes % % Monocytes % % Eosinophils % % Basophils % % Neutrophils # (1.3-7.7) k/uL Lymphocytes # (1.0-4.8) k/uL Monocytes # (0-1.0) k/uL Eosinophils # (0-0.7) k/uL Basophils # (0-0.2) k/uL Hypochromasia PT (9.0-12.0) sec INR (<1.2) APTT (22.0-30.0) sec Sodium (137-145) mmol/L Potassium (3.5-5.1) mmol/L Chloride (98-107) mmol/L Carbon Dioxide (22-30) mmol/L Anion Gap mmol/L BUN (9-20) mg/dL Creatinine (0.66-1.25) mg/dL Est GFR (CKD-EPI)AfAm (>60 ml/min/1.73 sqM) Est GFR (CKD-EPI)NonAf (>60 ml/min/1.73 sqM) Glucose (74-99) mg/dL Plasma Lactic Acid Kilo 5.8 H* (0.7-2.0) mmol/L Calcium (8.4-10.2) mg/dL Magnesium (1.6-2.3) mg/dL Total Bilirubin (0.2-1.3) mg/dL AST (17-59) U/L ALT (4-49) U/L Alkaline Phosphatase (38-126) U/L Troponin I 0.033 (0.000-0.034) ng/mL NT-Pro-B Natriuret Pep 6810 pg/mL Total Protein (6.3-8.2) g/dL Albumin (3.5-5.0) g/dL Influenza Type A (PCR) (Not Detectd) Influenza Type B (PCR) (Not Detectd) RSV (PCR) (Not Detectd) SARS-CoV-2 (PCR) (Not Detectd) 07/06/22 Range/Units 19:59 WBC (3.8-10.6) k/uL RBC (4.30-5.90) m/uL Hgb (13.0-17.5) gm/dL Hct (39.0-53.0) % MCV (80.0-100.0) fL MCH (25.0-35.0) pg MCHC (31.0-37.0) g/dL RDW (11.5-15.5) % Plt Count (150-450) k/uL MPV Neutrophils % % Lymphocytes % % Monocytes % % Eosinophils % % Basophils % % Neutrophils # (1.3-7.7) k/uL Lymphocytes # (1.0-4.8) k/uL Monocytes # (0-1.0) k/uL Eosinophils # (0-0.7) k/uL Basophils # (0-0.2) k/uL Hypochromasia PT (9.0-12.0) sec INR (<1.2) APTT (22.0-30.0) sec Sodium (137-145) mmol/L Potassium (3.5-5.1) mmol/L Chloride (98-107) mmol/L Carbon Dioxide (22-30) mmol/L Anion Gap mmol/L BUN (9-20) mg/dL Creatinine (0.66-1.25) mg/dL Est GFR (CKD-EPI)AfAm (>60 ml/min/1.73 sqM) Est GFR (CKD-EPI)NonAf (>60 ml/min/1.73 sqM) Glucose (74-99) mg/dL Plasma Lactic Acid Kilo (0.7-2.0) mmol/L Calcium (8.4-10.2) mg/dL Magnesium (1.6-2.3) mg/dL Total Bilirubin (0.2-1.3) mg/dL AST (17-59) U/L ALT (4-49) U/L Alkaline Phosphatase (38-126) U/L Troponin I (0.000-0.034) ng/mL NT-Pro-B Natriuret Pep pg/mL Total Protein (6.3-8.2) g/dL Albumin (3.5-5.0) g/dL Influenza Type A (PCR) Detected A (Not Detectd) Influenza Type B (PCR) Not Detected (Not Detectd) RSV (PCR) Not Detected (Not Detectd) SARS-CoV-2 (PCR) Not Detected (Not Detectd) Disposition Clinical Impression: Respiratory failure, Hypoxia, Lactic acidosis, Acute kidney injury, Pneumonia, Influenza Disposition: ADMITTED IP TO THIS HOSP Condition: Fair Is patient prescribed a controlled substance at d/c from ED?: No Time of Disposition: 21:45 Decision Date: 07/06/22 Decision Time: 21:45
[2022-07-06] MEDS ORDERED: PNEUMONIA PROTOCOL UTILIZED 1 EACH MISC PO PRN (22:30)
[2022-07-06] MEDS ORDERED: IPRATROPIUM-ALBUTEROL 3 ML NEB INHALATION PRN (22:30)
[2022-07-06] MEDS ORDERED: LORazepam 2 MG/ML INJ IV PRN (22:36)
[2022-07-06] MEDS ORDERED: SODIUM CHLORIDE 0.9% 500 ML IV STA (22:38)
[2022-07-06] MEDS: OSELTAMIVIR 75 MG CAP PO SCH (22:45)
[2022-07-07] MEDS: carvediloL 12.5 MG TAB PO SCH ×3 (01:02→17:14)
[2022-07-07 06:39] LABS: Appearance,Urine Clear (Clear); Bacteria,Urine Rare /hpf; Bilirubin,Urine Negative (Negative); Blood,Urine Large (Negative); Color,Urine Yellow; Glucose,Urine (UA) Negative (Negative); Hyaline Casts,Urine 41 /lpf (0-2); Ketones,Urine Negative (Negative); Leukocyte Esterase,Urine Trace (Negative); Mucus,Urine Occasional /hpf; Nitrite,Urine Negative (Negative); PH, Urine 5.5 (5.0-8.0); Protein,Urine 1+ (Negative); RBC,Urine >182 /hpf (0-5); Specific Gravity,Urine 1.015 (1.001-1.035); Squamous Epithelial Cell,Urine <1 /hpf (0-4); WBC,Urine 16 /hpf (0-5)
[2022-07-07] MEDS: OSELTAMIVIR 75 MG CAP PO SCH (08:54)
[2022-07-07] MEDS: ENOXAPARIN 40 MG/0.4 ML SYRINGE SQ SCH (08:54)
[2022-07-07] MEDS: ASPIRIN 81 MG PO SCH (08:54)
[2022-07-07] MEDS: OSELTAMIVIR 60 MG/10 ML ORAL SYRINGE PO SCH (19:58)
--- NOTE | 2022-07-07 23:16 | P.HPIM ---
History of Present Illness H&P Date: 07/07/22 Chief Complaint: Shortness of breath Patient is a 71-year-old male with a known history of coronary artery disease with prior history of CABG, ischemic cardiomyopathy with ejection fraction 20% percent status post AICD, history of ME, hypertension, hyperlipidemia, depression, history of ME presents ER with complaints of shortness of breath. Patient has been having symptoms over the past 2 days. He does have chills at home but no fever on admission. Denies any complaints of chest pain. No nausea vomiting or abdomen pain. Patient has been having generalized weakness and fatigue and body aches. Patient is somewhat poor historian. Chest x-ray Showed lower lobe infiltrate likely greater at the left lung base. Correlate for pneumonia. Atelectasis could be considered. Follow-up is recommended. EKG showed electronic ventricular paced rhythm. Laboratory data showed WBC 9.1 hemoglobin 16.6 platelets 169 INR 1.3 Sodium 137 potassium 4.7 chloride 103 bicarb is 18 BUN 20 and creatinine 1.95 and lactic acid 5.8 AST 77 total bilirubin 1.9 proBNP 6810 Urinalysis showed large blood trace leukocyte esterase and elevated RBCs and WBCs Influenza A detected. COVID-19 PCR and RSV and Legionella antigen negative. Review of Systems Constitutional: Patient does have chills. No fever. Generalized weakness and fatigue Abdomen: Patient denied nausea vomiting and diarrhea and abdominal pain. Cardiovascular: Patient denies any chest pain. Patient does have short of breath no palpitations. No leg swelling. Respiratory: patient denied any cough or sputum production. No shortness of breath Neurologic: Patient denied any numbness or tingling headache. Musculoskeletal: Patient denies any complaints of joint swelling or deformity. Skin: Negative Psychiatric: Negative Endocrine: No heat or cold intolerance. No recent weight gain. Genitourinary: No dysuria or hematuria. All other 14 point ROS negative except the above Past Medical History Past Medical History: Coronary Artery Disease (CAD), Hyperlipidemia, Hypertension, Myocardial Infarction ([place]) Additional Past Medical History / Comment(s): Coronary artery disease, previous bypass surgery, ischemic cardiomyopathy with an ejection fraction of 20%, hypertension, hyperlipidemia, third-degree AV block status post dual-chamber AICD placement. The patient has also very poor compliance with medical treatment and the patient has not seen a doctor after his coronary artery bypass surgery. Other medical history includes hypertension and hyperlipidemia. Last Myocardial Infarction Date:: 1997 History of Any Multi-Drug Resistant Organisms: None Reported Past Surgical History: Appendectomy, Coronary Bypass/CABG, Tonsillectomy Additional Past Surgical History / Comment(s): CABG 20 years ago Past Anesthesia/Blood Transfusion Reactions: No Reported Reaction Past Psychological History: No Psychological Hx Reported Smoking Status: Never smoker Past Alcohol Use History: None Reported Past Drug Use History: None Reported - Past Family History Father Family Medical History: Coronary Artery Disease (CAD) Additional Family Medical History / Comment(s): PAD Mother Additional Family Medical History / Comment(s): from uterine cancer, HTN Medications and Allergies Home Medications Medication Instructions Recorded Confirmed Type Aspirin EC [Ecotrin Low Dose] 81 mg PO DAILY 05/09/21 07/06/22 History carvediloL [Coreg*] 12.5 mg PO BID 08/08/21 07/07/22 History Furosemide [Lasix] 20 mg PO DAILY 07/06/22 07/07/22 History Allergies Allergy/AdvReac Type Severity Reaction Status Date / Time No Known Allergies Allergy Verified 07/06/22 20:39 Physical Exam Vitals: Vital Signs Temp Pulse Pulse Resp BP BP Pulse Ox 07/07/22 19:24 97.7 F 66 14 116/78 95 07/07/22 16:15 75 17 112/69 96 07/07/22 14:00 58 L 07/07/22 12:00 58 L 17 81/57 94 L 07/07/22 08:45 97.7 F 55 L 18 97/62 95 07/07/22 07:30 95 07/07/22 03:20 98.3 F 72 16 118/78 95 07/07/22 00:45 98.3 F 78 16 117/77 99 07/06/22 22:47 77 16 101/62 98 Intake and Output 07/07/22 07/07/22 07/07/22 06:59 14:59 22:59 Intake Total 360 180 Output Total 600 Balance -600 360 180 Intake: Oral 360 180 Output: Urine 300 Post Void Residual 300 Other: # Voids 1 Weight 79.832 kg PHYSICAL EXAMINATION: Patient is lying in the bed comfortably, no acute distress, awake alert and oriented.. HEENT: Normocephalic. Neck is supple. Pupils reactive. Nostrils clear. Oral cavity is moist. Neck reveals no JVD, carotid bruits, or thyromegaly. CHEST EXAMINATION: Trachea is central. Symmetrical expansion. Lung worley clear to auscultation and percussion. CARDIAC: Normal S1, S2 with no gallops. No murmurs ABDOMEN: Soft. Bowel sounds normal. No organomegaly. No abdominal bruits. Extremities: reveal no edema. No clubbing or cyanosis Neurologically awake, alert, oriented x3 with well-coordinated movements. No f ocal deficits noted Skin: No rash or skin lesions. Psychiatric: Cooperative. Nonsuicidal Musculoskeletal: No joint swelling or deformity. Normal range of motion. Results CBC & Chem 7: 07/08/22 07:18 07/08/22 07:18 Labs: Abnormal Lab Results - Last 24 Hours (Table) 07/07/22 Range/Units 05:00 Urine Protein 1+ H (Negative) Urine Blood Large H (Negative) Ur Leukocyte Esterase Trace H (Negative) Urine RBC >182 H (0-5) /hpf Urine WBC 16 H (0-5) /hpf Urine Bacteria Rare H (None) /hpf Hyaline Casts 41 H (0-2) /lpf Urine Mucus Occasional H (None) /hpf Microbiology - Last 24 Hours (Table) 07/07/22 05:00 Urine Culture - Preliminary Urine,Voided Thrombosis Risk Factor Assmnt - DVT/VTE Prophylaxis DVT/VTE Prophylaxis: Pharmacologic Prophylaxis ordered - Choose All That Apply Any of the Below Risk Factors Present?: Yes Each Factor Represents 1 point: Medical pt on bed rest, Obesity (BMI >25), Serious lung disease incl. pneumonia (< 1month) Other Risk Factors: Yes Each Risk Factor Represents 2 Points: Age 61-74 years Other congenital or acquired thrombophilia - If yes, enter type in comment: No Thrombosis Risk Factor Assessment Total Risk Factor Score: 5 Thrombosis Risk Factor Assessment Level: High Risk Assessment and Plan Assessment: Acute influenza A infection Shortness of breath and Acute Hypoxic respiratory failure secondary to above. Lactic acidosis. Resolved. Left lower lobe atelectasis. Chronic CHF with systolic dysfunction Cardiomyopathy ischemic with ejection fraction 20% status post ICD placement Coronary artery disease with history of CABG Hypertension Hyperlipidemia history of ME DVT prophylaxis with Lovenox subcu Plan: Patient was given gentle IV hydration in the ER. Started on Tamiflu and monitor respiratory status closely. titrate down o2 to RA Continue with aspirin, Coreg and other home medications. Follow-up renal function. Prognosis is guarded at this time. Time with Patient: Greater than 30
--- NOTE | 2022-07-08 07:29 | XR ---
EXAMINATION TYPE: XR chest 1V DATE OF EXAM: 07/08/2022 CLINICAL HISTORY: Difficulty breathing progress study. TECHNIQUE: Single AP portable upright view of the chest is obtained. COMPARISON: Chest x-ray from 2 days earlier FINDINGS: Overlying sternal wires and mediastinal clips are redemonstrated. Persistent cardiomegaly with dual lead pacemaker. Persistent low lung volumes with retrocardiac increased opacity. Improved c entral markings. No pleural effusion or pneumothorax is present. IMPRESSION: Low lung volumes and cardiomegaly with left basilar acute infiltrate and/or atelectasis r edemonstrated. No significant change from most recent prior. Improved central vascular congestion not ed from most recent prior.
[2022-07-08 08:06] LABS: Albumin 3.7 g/dL (3.5-5.0); Calcium 8.5 mg/dL (8.4-10.2); Potassium 4.6 mmol/L (3.5-5.1); Total Bilirubin 1.3 mg/dL (0.2-1.3); Total Protein 6.2 g/dL (6.3-8.2)
[2022-07-08 08:21] LABS: Basophils # (A) 0.1 k/uL (0-0.2); Basophils % (A) 2 %; Eosinophils % (A) 0 %; HCT 49.9 % (39.0-53.0); HGB 16.1 gm/dL (13.0-17.5); Hypochromasia Slight; Lymphocytes # (A) 1.1 k/uL (1.0-4.8); Lymphocytes % (A) 17 %; MCH 27.6 pg (25.0-35.0); MCHC 32.3 g/dL (31.0-37.0); MCV 85.5 fL (80.0-100.0); Mean Platelet Volume 11.4; Monocytes # (A) 0.7 k/uL (0-1.0); Monocytes % (A) 11 %; Neutrophils # (A) 4.3 k/uL (1.3-7.7); Neutrophils % (A) 66 %; Platelet Count 119 k/uL (150-450); RBC 5.84 m/uL (4.30-5.90); RDW 14.2 % (11.5-15.5); WBC 6.5 k/uL (3.8-10.6)
[2022-07-08] MEDS: ENOXAPARIN 40 MG/0.4 ML SYRINGE SQ SCH (08:50)
[2022-07-08] MEDS: OSELTAMIVIR 60 MG/10 ML ORAL SYRINGE PO SCH (08:50)
[2022-07-08] MEDS: carvediloL 12.5 MG TAB PO SCH ×2 (08:50→16:28)
[2022-07-08] MEDS: ASPIRIN 81 MG PO SCH (08:50)
[2022-07-08 08:58] VITALS: TEMP 98.4
[2022-07-08 16:43] VITALS: BP 92/53; PULSE 63
[2022-07-08 18:02] VITALS: RESP 18
[2022-07-08] MEDS ORDERED: MAGNESIUM SULFATE SYG 4.06 MEQ/ML SYRINGE ONE (18:50)
[2022-07-08] MEDS ORDERED: SODIUM BICARB 8.4% 50 ML SYR (1 MEQ/ML) ONE (18:50)
[2022-07-08] MEDS ORDERED: EPINEPHrine 10 ML SYRINGE (0.1 MG/ML) ONE (18:50)
[2022-07-08 19:01] LABS: Glucose,Whole Blood 90 mg/dL (70-110)
--- NOTE | 2022-07-08 19:17 | P.EN ---
Code called overhead at 1856. Per nurse, patient was in afib, and then went unresponsive. Initial rhythm was PEA. Epi x3 Bicarb x2 Mag 2.5 Morning labs reviewed. No significant metabolic derangements. Blood sugar was normal 4 rounds of CPR total. Patient's family requested to stop CPR at 19:06. Patient on 07/08/22 at 19:06.
--- NOTE | 2022-07-08 20:22 | P.PN ---
Subjective Progress Note Date: 07/08/22 Patient is a 71-year-old male with a known history of coronary artery disease with prior history of CABG, ischemic cardiomyopathy with ejection fraction 20% percent status post AICD, history of ND, hypertension, hyperlipidemia, depression, history of ND presents ER with complaints of shortness of breath. Patient has been having symptoms over the past 2 days. He does have chills at home but no fever on admission. Denies any complaints of chest pain. No nausea vomiting or abdomen pain. Patient has been having generalized weakness and fatigue and body aches. Patient is somewhat poor historian. Chest x-ray Showed lower lobe infiltrate likely greater at the left lung base. Correlate for pneumonia. Atelectasis could be considered. Follow-up is recommended. EKG showed electronic ventricular paced rhythm. Laboratory data showed WBC 9.1 hemoglobin 16.6 platelets 169 INR 1.3 Sodium 137 potassium 4.7 chloride 103 bicarb is 18 BUN 20 and creatinine 1.95 and lactic acid 5.8 AST 77 total bilirubin 1.9 proBNP 6810 Urinalysis showed large blood trace leukocyte esterase and elevated RBCs and WBCs Influenza A detected. COVID-19 PCR and RSV and Legionella antigen negative. 07/08/2022 Patient is sitting in the recliner. Was able to walk to the bathroom with help. Awake alert and oriented. No complaints of chest pain or worsening shortness of breath. Oxygen titrated down to room air. Patient has been afebrile. No nausea vomiting or diarrhea. Denies any complaints of abdominal pain. No tenderness over the right upper quadrant noted. Able to eat oral intake this morning. However blood pressures 96/64 today afternoon. Patient is being continued on aspirin and Coreg and Lasix on hold. Patient is also on Tamiflu. Laboratory data showed WBC 6.4 hemoglobin 16.1 and platelets 119 Sodium 136 potassium 4.6 chloride 104 bicarb is 24 BUN 39 and creatinine 2.08 and lactic acid came down to 1.7 Total bilirubin level is 1.3 and AST increasing to 869 and ALT 08[birth year]/1964 and alk phos 209. Blood cultures showed no growth and urine cultures negative. Chest x-ray showed low lung volumes and cardiomegaly with left basilar acute infiltrate and atelectasis redemonstrated. No significant change from most recent prior. Improved central vascular congestion noted from most recent prior. current medications reviewed. Objective - Vital Signs Vital signs: Vital Signs Temp 98.4 F 07/08/22 08:50 Pulse 63 07/08/22 16:30 Resp 18 07/08/22 18:01 BP 92/53 07/08/22 16:30 Pulse Ox 95 07/08/22 18:01 FiO2 Intake & Output 07/08/22 07/08/22 07/09/22 06:59 18:59 06:59 Intake Total 118 Output Total 375 Balance -375 118 Intake: Oral 118 Output: Urine 375 Other: # Voids 1 - Exam PHYSICAL EXAMINATION: Patient is lying in the bed comfortably, no acute distress, awake alert and oriented.. HEENT: Normocephalic. Neck is supple. Pupils reactive. Nostrils clear. Oral cavity is moist. Neck reveals no JVD, carotid bruits, or thyromegaly. CHEST EXAMINATION: Trachea is central. Symmetrical expansion. Lung worley clear to auscultation and percussion. CARDIAC: Normal S1, S2 with no gallops. No murmurs ABDOMEN: Soft. Bowel sounds normal. No organomegaly. No abdominal bruits. Extremities: reveal no edema. No clubbing or cyanosis Neurologically awake, alert, oriented x3 with well-coordinated movements. No gross focal deficits noted, Mild cognitive impairment. Skin: No rash or skin lesions. Psychiatric: Cooperative. Musculoskeletal: No joint swelling or deformity. Normal range of motion. - Labs CBC & Chem 7: 07/08/22 07:18 07/08/22 07:18 Labs: Abnormal Lab Results - Last 24 Hours (Table) 07/08/22 07/08/22 07/08/22 Range/Units 07:18 07:18 07:18 Plt Count 119 L (150-450) k/uL Sodium 136 L (137-145) mmol/L BUN 39 H (9-20) mg/dL Creatinine 2.08 H (0.66-1.25) mg/dL AST 869 H (17-59) U/L ALT 365 H (4-49) U/L Alkaline Phosphatase 209 H (38-126) U/L Total Protein 6.2 L (6.3-8.2) g/dL Procalcitonin 2.31 H (0.02-0.09) ng/mL Microbiology - Last 24 Hours (Table) 07/07/22 05:00 Urine Culture - Final Urine,Voided 07/06/22 19:45 Blood Culture - Preliminary Blood No Growth after 24 hours 07/06/22 19:59 Blood Culture - Preliminary Blood No Growth after 24 hours Assessment and Plan Assessment: Acute influenza A infection Shortness of breath and acute hypoxic respiratory failure on admission secondary to above.Currently titrated down to room air. Lactic acidosis. Resolved. Left lower lobe atelectasis. Chronic CHF with systolic dysfunction Cardiomyopathy ischemic with ejection fraction 20% status post ICD placement Coronary artery disease with history of CABG Hypertension Hyperlipidemia history of ND DVT prophylaxis with Lovenox subcu Plan: Patient was given gentle IV hydration in the ER. Started on Tamiflu and monitor respiratory status closely. Patient was found to have elevated liver enzymes. Could be related to viral infection. Ultrasound right upper quadrant will be ordered. Continue with aspirin, Coreg and other home medications. Follow-up renal function. Prognosis is guarded at this time. Discussed with her daughter at bedside in detail. Time with Patient: Greater than 30
--- NOTE | 2022-07-12 09:33 | CDI ---
Documentation Clarification Form Date: 07/12/22 From: Nicolasa Luke Admit Date: 07/06/2022 10:30:00 PM Patient Name: Hemal Padron Visit Number: [id number] Discharge Date: 07/08/2022 07:20:00 PM ATTENTION: The Clinical Documentation Specialists (CDI) and [facility] Coding Staff appreciate your assistance in clarifying documentation. Please respond to the clarification below the line at the bottom and electronically sign. The CDI & [facility] Coding staff will review the response and follow-up if needed. Please note: Queries are made part of the Legal Health Record. If you have any questions, please contact the author of this message via ITS. Dr. Henrik Alonso, The patient presented with the following clinical indicators. Additional clarification regarding the etiology/cause of the clinical indicators is requested. History/Risk Factors: coronary artery disease with prior history of CABG, ischemic cardiomyopathy with ejection fraction 20% percent status post AICD, history of AK, hypertension, hyperlipidemia, depression, history of AK Clinical Indicators: SOB, he does have chills at home but no fever on admission. Chest x-ray - Showed lower lobe infiltrate likely greater at the left lung base. WBC: 9.1 Neutrophils: 74 Lactic acid: 5.8 Blood cultures: No growth Vitals signs: T 98, P 95/104, R 20, O2 88, BP 101/62 Treatment: IV fluids, Tamiflu, nebulizer, pneumonia protocol In your professional opinion, please clarify if these findings signify one of the following conditions: [ ] Sepsis POA [ ] Sepsis, Not POA [ x ] Sepsis ruled out [ ] Severe Sepsis with organ failure [ ] Septic Shock [ ] SIRS, without underlying infectious process [ ] Other, please specify [ ] Unable to determine SIRS Criteria: 2 or more of the following may indicate SIRS -Temperature < 96.8F (36C) or > 101.0F (38.3C) -Heart Rate > 90 bpm -Respiratory Rate > 20 breaths/min or PaCO2 < 32 mmHg -White Blood Cell Count > 12,000 or < 4,000 cells/mm3 or > 10% bands MTDD
== END 2022-07-08 19:20 | disposition expired | DRG 193 ==
LOC: EC 19:02 → 3SCARD 22:30
PROVIDERS: ADMIT Hospitalist; ATTEND Hospitalist
PROC: 5A12012 Performance of Cardiac Output, Single, Manual (ICD-10-PCS; principal; 2022-07-08)
DX: J10.00 Influenza due to other identified influenza virus with unspecified type of pneumonia (principal); J96.01 Acute respiratory failure with hypoxia; I44.2 Atrioventricular block, complete; N17.9 Acute kidney failure, unspecified; E87.20 Acidosis, unspecified; I50.22 Chronic systolic (congestive) heart failure; J98.11 Atelectasis; I11.0 Hypertensive heart disease with heart failure; I46.8 Cardiac arrest due to other underlying condition; J18.9 Pneumonia, unspecified organism; Z20.822 Contact with and (suspected) exposure to COVID-19; Z28.310 Unvaccinated for COVID-19; E78.5 Hyperlipidemia, unspecified; I25.10 Atherosclerotic heart disease of native coronary artery without angina pectoris; I25.2 Old myocardial infarction; I25.5 Ischemic cardiomyopathy; Z91.199 Patient's noncompliance with other medical treatment and regimen due to unspecified reason; Z79.82 Long term (current) use of aspirin; Z79.899 Other long term (current) drug therapy; Z95.1 Presence of aortocoronary bypass graft; Z95.810 Presence of automatic (implantable) cardiac defibrillator
CPT/HCPCS: 36415; 71045; 71046; 80053; 81001; 83605; 83735; 83880; 84145; 84484; 85025; 85610; 85730; 87040; 87086; 87449; 87636; 93005; 94640; 94760; 96361; 96374; 99285